=== PATIENT | male | born 1975 | race Caucasian/White ===

== ENCOUNTER 2025-03-21 15:34 | Emergency (ER) | payer MEDICAID, SELFPAY ==
[~2025-03-21] VITALS: Ht 165.1 cm; Wt 71.4 kg
[2025-03-21] MEDS ORDERED: KETO120S5 TOP (19:36)
[2025-03-21] MEDS ORDERED: TRIA1CR80 TOP (19:36)
[2025-03-21] MEDS ORDERED: PRED20TA PO (19:36)
[2025-03-21] MEDS: predniSONE 20 MG TAB PO ONE (19:37)
[2025-03-21 19:47] VITALS: BP 175/96; TEMP 98.4; O2SAT 100
== END 2025-03-21 19:48 | disposition home or self-care (01) ==
LOC: M ED 15:34
DX: L40.0 Psoriasis vulgaris (principal)
CPT/HCPCS: 99283; J7512

== ENCOUNTER → 2025-03-25 | Outpatient (CLI) | payer MEDICAID, SELFPAY ==
[~2025-03-25] MED LIST: KETO120S5 TOP; PRED20TA PO; TRIA1CR80 TOP
[2025-03-25 13:04] LABS: APPEARANCE, URINE CLEAR (CLEAR); BACTERIA, URINE AUTO NEGATIVE (NEGATIVE); BILIRUBIN, URINE AUTO NEGATIVE (NEGATIVE); BLOOD, URINE BLOOD NEGATIVE (NEGATIVE); GLUCOSE, URINE (UA) AUTO NEGATIVE (NEGATIVE); KETONE, URINE AUTO NEGATIVE (NEGATIVE); LEUKOCYTE ESTERASE, URINE AUTO NEGATIVE (NEGATIVE); MUCUS, URINE SMALL (NEGATIVE); NITRITE, URINE AUTO NEGATIVE (NEGATIVE); PROTEIN, URINE AUTO NEGATIVE (NEGATIVE); RBC, URINE AUTO 1 /HPF (0-3); SPECIFIC GRAVITY URINE AUTO 1.018 (1.002-1.035); SQUAMOUS EPITHELIAL CELL UR AU 0 /HPF (0-6); UROBILINOGEN, URINE AUTO 2.0 mg/dL (0.0-2.0); WBC, URINE AUTO 1 /HPF (0-3)
[2025-03-25 13:30] LABS: CHOLESTEROL LEVEL 166 MG/DL (<200); CHOLESTEROL RISK RATIO 5.07 (<5); LDL CHOLESTEROL 95.5 MG/DL (<100); MAGNESIUM LEVEL 2.1 MG/DL (1.8-2.4); NON-HDL-C 133.3 MG/DL; TRIGLYCERIDES LEVEL 189 MG/DL (<150)
[2025-03-25 13:41] LABS: ESTIMATED AVERAGE GLUCOSE 97.0 MG/DL (60-110)
[2025-03-25 13:56] LABS: HIV 1&2 SCREEN NEGATIVE (NEGATIVE)
[2025-03-25 14:05] LABS: HEPATITIS C VIRUS ABY INDEX < 0.02 INDEX (<0.8)
[2025-03-26 14:43] LABS: HEPATITIS B SURF AB QUANT < 5 mIU/mL (> OR = 10)
[2025-03-29 16:22] LABS: PSA % FREE 30 % (calc) (>25); PSA FREE 0.3 ng/mL; PSA TOTAL 1.0 ng/mL (< OR = 4.0)
== END ==
LOC: M LAB 12:13
PROVIDERS: ATTEND Dermatology
DX: R21 Rash and other nonspecific skin eruption (principal); L30.8 Other specified dermatitis; L57.0 Actinic keratosis